=== PATIENT | female | born 1985 | race Caucasian/White ===

== ENCOUNTER 2016-11-28 19:14 | Emergency (ER) | payer OTHER ==
[2016-11-28 19:39] VITALS: BP 142/78
[2016-11-28] MEDS ORDERED: LORATADINE 10 MG TABLET PO ONE (20:05)
[2016-11-28] MEDS: LORATADINE/PSEUDOEPHEDRINE 1 EACH TAB.ER.12H PO ONE (20:09)
[2016-11-28] MEDS: AMOXICILLIN 500 MG CAPSULE PO ONE (20:09)
[2016-11-28] MEDS: LORATADINE 10 MG TABLET PO ONE (20:11)
--- NOTE | 2016-11-28 21:31 | ED Physician Documentation ---
Ear Complaints - HISTORIAN Historian: patient - HPI Stated Complaint: L ear pain, dental pain, back pain Chief Complaint: Ear Complaints Additional Information: x 2 months Timing: still present Location of Pain: L ear Severity: mild Associated Symptoms: jaw pain Further Comments: no - ROS CONST: no problems CVS/RESP: none GI/: denies: black stools, nausea, vomiting MS/SKIN/LYMPH: none NEURO/PSYCH: denies: weakness, numbness, anxiety, depression All Systems -: No - PAST HX Past History: none Immunizations: referred to PCP Allergies/Adverse Reactions: Allergies Allergy/AdvReac Type Severity Reaction Status Date / Time No Known Allergies Allergy Verified 11/28/16 19:30 Home Medications: Ambulatory Orders Medication Instructions Recorded Control Pill 1 tab PO DAILY 03/18/15 - SOCIAL HX Smoking History: cigarettes Alcohol Use: none Drug Use: none - FAMILY HX Family History: Yes - VITAL SIGNS Vital Signs: Vital Signs Temp Pulse Resp BP Pulse Ox 98.2 F 95 H 18 142/78 99 11/28/16 19:32 11/28/16 19:32 11/28/16 19:32 11/28/16 19:32 11/28/16 19:32 - REVIEWED ASSESSMENTS Nursing Assessment Reviewed: Yes Vitals Reviewed: Yes Progress - Results/Orders Results/Orders: no testing ordered - Progress Progress: pt. stable entire time in er, given amoxicillin 500 mg p.o. and claritin 10 mg p.o. 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 No: pain w movement of auricl Mouth/Throat: lips nml, gums nml (abscess left lower gingiva at canine), pharynx nml, dental caries Nose: nml inspection Head/Neck: atraumatic, neck nml inspection Eye: eyes nml inspection, PERRL Resp/CVS: chest non-tender, breath sounds nml, heart sounds nml, no resp. distress, lungs clear, reg. rate & rhythm Abdomen: non-tender, no organomegaly Skin: nml color, no skin rash Neuro/Psych: oriented x3, mood/affect nml Discharge Clincal Impression: Otitis media Qualifiers: Otitis media type: serous Chronicity: acute Laterality: left Recurrence: not specified as recurrent Qualified Code(s): H65.02 - Acute serous otitis media, left ear Referrals: Primary Doctor,No [Primary Care Provider] - 2 Days Home Medications: Ambulatory Orders Control Pill 1 tab PO DAILY 03/18/15 Comments: discharged with scripts for claritin-d 12 hr 1 p.o. bid and amoxicillin 1 capsule 3x/day Condition: Stable Disposition: 01 HOME, SELF-CARE Decision to Admit: NO Decision Time: 20:00
[2016-11-29 05:15] LABS: APPEARANCE,URINE CLOUDY (CLEAR); COLOR,URINE AMBER (YELLOW); OCCULT BLOOD,URINE 1+ (NEGATIVE); PH URINE 5.5 (5.0 - 8.0)
== END 2016-11-28 20:11 | disposition home or self-care (01) ==
LOC: ED 19:14
DX: H65.02 Acute serous otitis media, left ear (principal); M54.9 Dorsalgia, unspecified
CPT/HCPCS: 81002; 87086; 87186; 99283

== ENCOUNTER 2016-12-18 19:58 | Emergency (ER) | payer OTHER ==
[2016-12-18 20:10] VITALS: BP 147/92
--- NOTE | 2016-12-18 20:26 | ED Physician Documentation ---
Ear Complaints - HISTORIAN Historian: patient - HPI Stated Complaint: Left ear pain Chief Complaint: Ear Complaints Additional Information: hurts on the side of her face, and she thinks it's in her ear, but also hurts her teeth when she drinks cold or hot. she was put on amoxil 2 weeks ago for the same, it got some better but now hurts again. she has poor dentition. Timing: still present Location of Pain: L ear Severity: mild Associated Symptoms: dull pain, aching. denies: fever, chills, ringing, roaring , trauma to ear - ROS CONST: no problems CVS/RESP: none GI/: denies: vomiting MS/SKIN/LYMPH: none NEURO/PSYCH: denies: weakness All Systems -: No - PAST HX Past History: none Allergies/Adverse Reactions: Allergies Allergy/AdvReac Type Severity Reaction Status Date / Time No Known Allergies Allergy Verified 12/18/16 20:11 Home Medications: Ambulatory Orders Medication Instructions Recorded Control Pill 1 tab PO DAILY 03/18/15 - SOCIAL HX Smoking History: cigarettes Alcohol Use: occasionally Drug Use: none - FAMILY HX Family History: Yes - VITAL SIGNS Vital Signs: Vital Signs Temp Pulse Resp BP Pulse Ox 98.2 F 71 16 147/92 99 12/18/16 20:00 12/18/16 20:00 12/18/16 20:00 12/18/16 20:00 12/18/16 20:00 - REVIEWED ASSESSMENTS Nursing Assessment Reviewed: Yes Vitals Reviewed: Yes Progress - Results/Orders Results/Orders: exam reveals normal ear, but poor teeth, she was on PCN, we'll try clindamycin. 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 No: pain w movement of auricl, erythema, mastoid tenderness, mastoid swelling, swelling of canal, material in canal, discharge Mouth/Throat: lips nml, gums nml, pharynx nml, dental caries, dental tenderness Nose: nml inspection Head/Neck: neck nml inspection. No: facial swelling Resp/CVS: no resp. distress Abdomen: non-tender Skin: nml color, no skin rash Neuro/Psych: oriented x3, mood/affect nml Discharge Clincal Impression: Tooth decay, Tooth pain Referrals: Primary Doctor,No [Primary Care Provider] - 2 Days Home Medications: Ambulatory Orders Control Pill 1 tab PO DAILY 03/18/15 Condition: Good Disposition: 01 HOME, SELF-CARE Decision to Admit: NO Date of Decison to Admit: 12/18/16 Decision Time: 20:25
== END 2016-12-18 20:31 | disposition home or self-care (01) ==
LOC: ED 19:58
DX: K02.9 Dental caries, unspecified (principal); K08.89 Other specified disorders of teeth and supporting structures
CPT/HCPCS: 99283; 99284